=== PATIENT | female | born 1995 | race African-American/Black ===

== ENCOUNTER → 2019-11-21 | Outpatient (REF) | LOC: M LAB 10:54 | PROVIDERS: ATTEND Nurse Practitioner Adult Health | DX: Z02.1 Encounter for pre-employment examination (principal) ==

== ENCOUNTER 2023-04-12 08:07 | Day surgery (SDC) | payer OTHER ==
[~2023-04-12] VITALS: Ht 152.4 cm; Wt 72.6 kg
[~2023-04-12 08:07] MED LIST: ARIP1TAB4 PO; PALI1TAB2 PO; PNV,1TAB3; SERT25TA21 PO; TRAZ-252 PO
[2023-04-12 08:36] LABS: HEMATOCRIT 42.2 % (36.0-47.0); HEMOGLOBIN 13.8 g/dl (12.0-15.5); MEAN CORPUSCULAR HEMOGLOBIN 29.2 pg (27.0-33.0); MEAN CORPUSCULAR HGB CONC 32.7 g/dl (32.0-36.5); MEAN CORPUSCULAR VOLUME 89.4 fl (80.0-96.0); PLATELET COUNT, AUTOMATED 300 10^3/uL (150-450); RED BLOOD COUNT 4.72 10^6/uL (4.00-5.40)
[2023-04-12] MEDS ORDERED: ONDANSETRON 4MG 2ML VIAL As Ordered ONE (08:48)
[2023-04-12] MEDS ORDERED: LIDOCAINE 2% 100MG/5ML SDV (FOR ANES.) As Ordered ONE (08:48)
[2023-04-12] MEDS ORDERED: MIDAZOLAM INJ 2MG/2ML VIAL As Ordered ONE (08:48)
[2023-04-12] MEDS ORDERED: fentaNYL 250 MCG/5 ML INJECTION As Ordered ONE (08:48)
[2023-04-12] MEDS ORDERED: propofoL 200 MG/20 ML VIAL As Ordered ONE (08:48)
[2023-04-12] MEDS ORDERED: KETOROLAC 60MG 2ML VIAL As Ordered ONE (08:48)
[2023-04-12] MEDS ORDERED: LR 1,000 ML IV SCH ×2 (08:55→10:50)
[2023-04-12] MEDS ORDERED: ACETAMINOPHEN 1000MG 100ML IV BAG As Ordered ONE (09:56)
[2023-04-12] MEDS ORDERED: PHENYLephrine 500MCG 5ML (100MCG/ML) SYRINGE As Ordered ONE (10:35)
[2023-04-12] MEDS ORDERED: SILVER NITRATE APPLICATOR (1 = QTY 10) As Ordered ONE (10:40)
[2023-04-12] MEDS ORDERED: oxyCODONE 5MG TAB PO PRN (10:50)
[2023-04-12] MEDS ORDERED: HYDROMORPHONE HCL 0.5 MG/ 0.5 ML SYRINGE IV PRN (10:50)
[2023-04-12] MEDS ORDERED: fentaNYL 100 MCG/2 ML INJECTION IV PRN (10:50)
[2023-04-12] MEDS ORDERED: ONDANSETRON 4MG 2ML VIAL IV PRN (10:50)
[2023-04-12 12:15] VITALS: BP 137/78; TEMP 97.4; O2SAT 99
== END 2023-04-12 12:12 | disposition home or self-care (01) ==
LOC: M SDC 08:07
PROVIDERS: ATTEND Obstetrics & Gynecology
DX: T83.32XA Displacement of intrauterine contraceptive device, initial encounter (principal); D25.9 Leiomyoma of uterus, unspecified; F43.10 Post-traumatic stress disorder, unspecified; Z79.899 Other long term (current) drug therapy
CPT/HCPCS: 36415; 58558; 58562; 85027; 86850; 86900; 86901; 88305; J0131; J1100; J1885; J2250; J2371; J2405; J3010